=== PATIENT | male | born 1985 | race Two or more races ===

== ENCOUNTER 2017-02-17 03:43 | Emergency (ER) | payer SELFPAY ==
[~2017-02-17] VITALS: Ht 172.7 cm; Wt 72.6 kg
[2017-02-17 03:43] VITALS: BP 141/86
[2017-02-17] MEDS ORDERED: LORAZEPAM 1 MG TABLET ONE (03:55)
[2017-02-17] MEDS ORDERED: LORAZEPAM 1 MG TABLET PO ONE (04:00)
== END 2017-02-17 04:48 | disposition home or self-care (01) ==
LOC: ER 03:47 → EDBD 03:47 → EDSEX 03:47 → ER 04:48
DX: F41.9 Anxiety disorder, unspecified (principal); J45.909 Unspecified asthma, uncomplicated
CPT/HCPCS: 71010; 99284; A4606; Z7610